=== PATIENT | male | born 1970 | race Hispanic/Latino ===

== ENCOUNTER → 2018-01-28 | Day surgery (SDC) | payer OTHER ==
[~2018-01-28] MED LIST: CENTRUM COMPLE1 EACH PO; DICYCLOMINE HCL20 MG PO; FENTANYL CITRATE/PF 100MCG/2 ML INJ ONE; LIDOCAINE HCL 2% LOCAL INJ 5 ML SDV VIAL INJ ONE; MIDAZOLAM HCL 2 MG/2 ML VIAL ONE; MILK THISTLE500 MG PO; PROPOFOL IV EMULSION 10 MG/ML 50 ML VIAL ONE; SIMETHICONE 40 MG/0.6 ML BTL ONE; TUMS200 MG PO; VIT B PO; VIT C PO
[2018-01-28 11:50] VITALS: BP 124/90
--- NOTE | 2018-01-28 13:03 | Operative Report ---
DATE OF PROCEDURE: January 28, 2018 REFERRING PHYSICIAN: Dr. Mary Carmen Almeida. PROCEDURES PERFORMED: 1. Esophagogastroduodenoscopy with biopsies. 2. Colonoscopy with polypectomy and biopsies. INDICATIONS FOR ESOPHAGOGASTRODUODENOSCOPY: Upper abdominal pain, bloating. INDICATIONS FOR COLONOSCOPY: History of intermittent diarrhea. MEDICATION: Patient was done under MAC. Please see anesthesiologist's note. PROCEDURE: With the patient in the left lateral decubitus position, the flexible fiberoptic Olympus gastroscope was introduced into the esophagus under direct visualization without any difficulty. There was some patchy erythema noted in the distal esophagus. A minute tongue of velvety red mucosa was noted to extend proximally from the GE junction, and biopsies were obtained to rule out Shi's. The scope was then advanced with ease into the stomach, traversing a small sliding hiatal hernia. Mucosa overlying the antrum and the body revealed some patchy erythema and low-grade to moderate edema. Biopsies were obtained and sent to stain for H. pylori. Pylorus appeared to be of normal contour and shape, was intubated with ease, and the scope was advanced all the way to the 2nd portion of the duodenum. Biopsies were obtained from the proximal 2nd portion to rule out sprue. Mucosa overlying the duodenal bulb appeared to be within normal limits. The scope was then withdrawn back into the stomach and retroflexed, and the mucosa overlying the fundus and the cardia appeared to be within normal limits. The scope was then straightened out. It was subsequently withdrawn. Patient tolerated the procedure well. IMPRESSION: 1. Mild distal esophagitis. 2. Rule out Shi's esophagus. 3. Small sliding hiatal hernia. 4. Gastritis biopsied. Biopsies sent to stain for H. pylori. 5. Rule out sprue. PLAN: Follow up histology. Initiate Protonix 40 mg 1 p.o. q.a.m. a.c. Patient was then turned around and after adequate lubrication of the anal canal, a flexible fiberoptic Olympus colonoscope was inserted into the rectum with ease and advanced all the way to the cecum. Mucosa overlying the cecum appeared to be within normal limits. The ileocecal was intubated, and the scope was advanced into the terminal ileum. Biopsies were obtained. The scope was then withdrawn back into the colon. It was then withdrawn slowly. Mucosa overlying the ascending and the transverse grossly appeared to be within normal limits. Mucosa overlying the left colon revealed some patchy mild inflammatory changes, and random biopsies were obtained. A minute ulcer was noted in the sigmoid colon, and that was biopsied. One polyp was hot biopsied from the sigmoid colon. The scope was then retroflexed into the distal rectum and small internal hemorrhoids were noted, none of which was actively bleeding. The scope was then straightened out. It was subsequently withdrawn after securing an adequate stool specimen that was sent for the appropriate stool studies. Patient tolerated the procedure well. IMPRESSION: 1. Mild patchy left-sided colitis. 2. Minute ulcer, sigmoid colon, biopsied. 3. Sigmoid colon polyp hot biopsied. 4. Internal hemorrhoids, none actively bleeding. PLAN: Follow up histology. Follow up stool studies. Initiate VSL#3 one p.o. daily and Bentyl 10 mg 1 p.o. t.i.d. Patient might benefit from a followup colonoscopy in 3 to 5 years. Job#: [id number] EV cc:MARY CARMEN ALMEIDA M.D.
[2018-01-28 14:26] LABS: C DIFFICILE TOXIN A&B AMP PROB NEGATIVE (NEGATIVE); WBC,FECAL (FECAL LACTOFERRIN) NEGATIVE (NEGATIVE)
== END | disposition home or self-care (01) ==
LOC: OR 09:26
PROVIDERS: ATTEND Internal Medicine Gastroenterology
DX: Z12.11 Encounter for screening for malignant neoplasm of colon (principal); D12.5 Benign neoplasm of sigmoid colon; K29.70 Gastritis, unspecified, without bleeding; K51.50 Left sided colitis without complications; K20.9 Esophagitis, unspecified; K44.9 Diaphragmatic hernia without obstruction or gangrene; K22.8 Other specified diseases of esophagus; K21.9 Gastro-esophageal reflux disease without esophagitis; G47.33 Obstructive sleep apnea (adult) (pediatric); K64.8 Other hemorrhoids; Z01.810 Encounter for preprocedural cardiovascular examination; Z68.30 Body mass index [BMI] 30.0-30.9, adult
CPT/HCPCS: 43239; 45380; 45384; 83630; 83993; 87045; 87177; 87328; 87493; 93005; J2001; J2250; 45378